=== PATIENT | male | born 1965 | race Caucasian/White ===

== ENCOUNTER 2020-03-28 18:28 | Emergency (ER) | payer MEDICARE ==
[~2020-03-28] VITALS: Ht 175.3 cm; Wt 95.3 kg
[2020-03-28] MEDS ORDERED: BOOSTRIX/ADACEL VACCINE (DIPHTH/PERTUSS/ACELL/TETANUS) 0.5ML SYR IM ONE (18:45)
[2020-03-28 18:51] LABS: HEMATOCRIT 44.4 % (42.0-52.0); HEMOGLOBIN 15.1 g/dl (13.5-17.5); MEAN CORPUSCULAR VOLUME 88.1 fl (80.0-96.0); PLATELET COUNT, AUTOMATED 182 10^3/uL (150-450); RED BLOOD COUNT 5.04 10^6/uL (4.30-6.10); WHITE BLOOD COUNT 10.4 10^3/uL (4.0-10.0)
[2020-03-28 19:03] LABS: INR 1.08; PROTHROMBIN TIME 13.7 SECONDS (11.8-14.0)
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
[2020-03-28 19:14] LABS: BLOOD UREA NITROGEN 16 MG/DL (7-18); CARBON DIOXIDE LEVEL 23 MEQ/L (21-32); CHLORIDE LEVEL 103 MEQ/L (98-107); GLOMERULAR FILTRATION RATE > 60.0 (>56); GLUCOSE, FASTING 356 MG/DL (70-100); SODIUM LEVEL 136 MEQ/L (136-145)
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
[2020-03-28 19:52] LABS: HEMOGLOBIN A1c 9.7 %
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
[2020-03-28] MEDS ORDERED: LISI10TA4 PO (22:21)
[2020-03-28] MEDS ORDERED: METF500T13 PO (22:21)
[2020-03-28 22:30] VITALS: BP 115/59
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
== END 2020-03-28 23:00 | disposition home or self-care (01) ==
LOC: M ED 18:28
DX: Q28.2 Arteriovenous malformation of cerebral vessels (principal); E11.9 Type 2 diabetes mellitus without complications; S20.211A Contusion of right front wall of thorax, initial encounter; I72.5 Aneurysm of other precerebral arteries; V91.33XA Hit or struck by falling object due to accident to other powered watercraft, initial encounter; Y92.9 Unspecified place or not applicable; Y93.9 Activity, unspecified; Y99.9 Unspecified external cause status; Z72.0 Tobacco use; Z91.89 Other specified personal risk factors, not elsewhere classified

== ENCOUNTER 2023-03-05 21:33 | Emergency (ER) | payer MEDICARE ==
[~2023-03-05] VITALS: Ht 177.8 cm; Wt 99.0 kg
[~2023-03-05 21:33] MED LIST: LISI10TA22 PO; METF500T13 PO
[2023-03-05] MEDS ORDERED: PROPOFOL 1,000 MG/100 ML VIAL As Ordered ONE (21:43)
[2023-03-05] MEDS ORDERED: ETOMIDATE INJ 20MG/10ML VIAL IV ONE (21:50)
[2023-03-05] MEDS ORDERED: SUCCINYLCHOLINE INJ 200MG/10ML VIAL IV ONE (21:50)
[2023-03-05] MEDS ORDERED: levETIRAcetam INJection 1,000 MG in D5W 100 ML IV ONE (21:55)
[2023-03-05] MEDS: propofoL 1,000 MG in IV 1 EA IV SCH ×2 (21:56→22:41)
[2023-03-05 22:09] LABS: ABG BASE EXCESS -5.9 (-2.0-2.0); ABG O2 SATURATION 99.2 % (95.0-99.0); ABG PARTIAL PRESSURE CO2 40.9 mmHg (35.0-45.0); ABG PARTIAL PRESSURE O2 213.4 mmHg (75.0-100.0); ABG STANDARD HCO3 19.8 MMOL/L. (22.0-26.0); ABG TOTAL CO2 21.3 MMOL/L (22.0-29.0); ABG pH (ARTERIAL) 7.308 UNITS (7.350-7.450)
[2023-03-05] MEDS ORDERED: HYDR-3713 PO (22:13)
[2023-03-05] MEDS ORDERED: ASPI32ECTA PO (22:13)
[2023-03-05] MEDS ORDERED: METF500T13 PO (22:13)
[2023-03-05 22:14] LABS: BASO % 0.5 % (0.0-1.0); EOS # 0.2 10^3/uL (0.0-0.5); EOS % 2.2 % (0.0-3.0); HEMATOCRIT 42.8 % (42.0-52.0); HEMOGLOBIN 14.6 g/dl (13.5-17.5); LYMPH # 2.3 10^3/uL (1.5-5.0); LYMPH % 31.2 % (24.0-44.0); MEAN CORPUSCULAR HEMOGLOBIN 30.5 pg (27.0-33.0); MEAN CORPUSCULAR HGB CONC 34.1 g/dl (32.0-36.5); MEAN CORPUSCULAR VOLUME 89.4 fl (80.0-96.0); MONO # 0.7 10^3/uL (0.0-0.8); MONO % 9.1 % (2.0-8.0); NEUTROPHILS # 4.2 10^3/uL (1.5-8.5); NEUTROPHILS % 56.5 % (36.0-66.0); PLATELET COUNT, AUTOMATED 212 10^3/uL (150-450); RED BLOOD COUNT 4.79 10^6/uL (4.30-6.10); WHITE BLOOD COUNT 7.4 10^3/uL (4.0-10.0)
[2023-03-05] MEDS ORDERED: HOME MED LIST COMPLETE! XX SCH (22:15)
[2023-03-05 22:16] VITALS: TEMP 98
[2023-03-05 22:19] VITALS: O2SAT 99
[2023-03-05] MEDS ORDERED: propofoL 200 MG/20 ML VIAL IV ONE (22:25)
[2023-03-05 22:32] LABS: INR 0.85; PROTHROMBIN TIME 11.8 SECONDS (12.5-14.5)
[2023-03-05 22:33] LABS: PARTIAL THROMBOPLASTIN TIME 25.8 SECONDS (24.8-34.2)
[2023-03-05 22:40] LABS: ALBUMIN 3.5 G/DL (3.2-5.2); ALKALINE PHOSPHATASE 68 U/L (46-116); ALT/SGPT 20 U/L (7.0-40); AST/SGOT 12 U/L (<34); BILIRUBIN,DIRECT 0.1 MG/DL (<0.4); BILIRUBIN,TOTAL 0.4 MG/DL (0.3-1.2); BLOOD UREA NITROGEN 16 MG/DL (9-23); CALCIUM LEVEL 9.1 MG/DL (8.5-10.1); CARBON DIOXIDE LEVEL 22 MMOL/L (20-31); CHLORIDE LEVEL 104 MMOL/L (98-107); CREATININE FOR GFR 0.72 MG/DL (0.70-1.30); GLOMERULAR FILTRATION RATE > 60.0 (>56); GLUCOSE, FASTING 208 MG/DL (60-100); MAGNESIUM LEVEL 1.8 MG/DL (1.8-2.4); PHOSPHORUS LEVEL 3.4 MG/DL (2.5-4.9); POTASSIUM SERUM 3.4 MMOL/L (3.5-5.1); SODIUM LEVEL 141 MMOL/L (136-145); TOTAL PROTEIN 6.4 G/DL (5.7-8.2)
[2023-03-05 23:19] LABS: AMPHETAMINES LEVEL URINE NEGATIVE (NEGATIVE); BARBITURATES URINE NEGATIVE (NEGATIVE); COCAINE METABOLITE URINE NEGATIVE (NEGATIVE); METHADONE URINE NEGATIVE (NEGATIVE)
[2023-03-05 23:20] LABS: CANNABINOIDS URINE NEGATIVE (NEGATIVE); PHENCYCLIDINE URINE NEGATIVE (NEGATIVE)
[2023-03-05 23:23] LABS: RSV AMPLIFICATION NEGATIVE (NEGATIVE)
[2023-03-05 23:29] LABS: BENZODIAZEPINES URINE POSITIVE (NEGATIVE); OPIATES URINE POSITIVE (NEGATIVE)
[2023-03-06] MEDS ORDERED: levETIRAcetam INJection 3,000 MG in D5W 100 ML IV ONE ×2
[2023-03-06 00:01] VITALS: BP 133/66; O2SAT 100
== END 2023-03-06 00:20 | disposition short-term general hospital (02) ==
LOC: EDBD 21:33 → M ED 21:33
DX: G40.901 Epilepsy, unspecified, not intractable, with status epilepticus (principal); Q28.2 Arteriovenous malformation of cerebral vessels; E11.9 Type 2 diabetes mellitus without complications; Z86.79 Personal history of other diseases of the circulatory system; Z79.82 Long term (current) use of aspirin; Z79.84 Long term (current) use of oral hypoglycemic drugs; Z88.3 Allergy status to other anti-infective agents
CPT/HCPCS: 31500; 36600; 51702; 70450; 71045; 80048; 80076; 80307; 81001; 82803; 83735; 84100; 85025; 85610; 85730; 86850; 86900; 86901; 87631; 93005; 93041; 94760; 96365; 96366; 96375; 99285; J0330; J1953

== ENCOUNTER 2023-05-20 23:56 | Inpatient (IN) | payer MEDICARE ==
[~2023-05-20] VITALS: Ht 175.3 cm; Wt 91.5 kg
[~2023-05-20 23:56] MED LIST changes: +ASPI32ECTA PO; +HYDR-3713 PO
[2023-05-21] VITALS (10 sets, daily range): BP systolic 115–131; BP diastolic 62–75; TEMP 97–98.7; O2SAT 94–99
[2023-05-21] MEDS ORDERED: ASPIRIN 81MG CHEW TABLET PO ONE (00:25)
[2023-05-21] MEDS ORDERED: methylPREDNISolone 125MG 2ML VIAL IV ONE (00:25)
[2023-05-21] MEDS ORDERED: AZIT-12 PO (00:26)
[2023-05-21] MEDS ORDERED: AMOX500T PO (00:26)
[2023-05-21] MEDS ORDERED: BENZONATATE 100MG CAPSULE PO ONE (00:30)
[2023-05-21] MEDS: IPRATROPIUM 0.5MG/ALBUTEROL 2.5MG INH SOL UD 3ML (DUONEB) NEB PRN ×2 (00:39→00:40)
[2023-05-21 00:41] LABS: BASO # 0.1 10^3/uL (0.0-0.2); BASO % 0.6 % (0.0-1.0); EOS # 0.2 10^3/uL (0.0-0.5); EOS % 2.5 % (0.0-3.0); HEMATOCRIT 45.2 % (42.0-52.0); HEMOGLOBIN 15.7 g/dl (13.5-17.5); LYMPH # 4.7 10^3/uL (1.5-5.0); LYMPH % 49.2 % (24.0-44.0); MEAN CORPUSCULAR HEMOGLOBIN 30.3 pg (27.0-33.0); MEAN CORPUSCULAR HGB CONC 34.7 g/dl (32.0-36.5); MEAN CORPUSCULAR VOLUME 87.3 fl (80.0-96.0); MONO % 10.9 % (2.0-8.0); NEUTROPHILS # 3.5 10^3/uL (1.5-8.5); NEUTROPHILS % 36.3 % (36.0-66.0); PLATELET COUNT, AUTOMATED 247 10^3/uL (150-450); RED BLOOD COUNT 5.18 10^6/uL (4.30-6.10); WHITE BLOOD COUNT 9.6 10^3/uL (4.0-10.0)
[2023-05-21 01:11] LABS: ALBUMIN 3.9 G/DL (3.2-5.2); ALKALINE PHOSPHATASE 73 U/L (46-116); ALT/SGPT 30 U/L (7.0-40); AST/SGOT 16 U/L (<34); BILIRUBIN,DIRECT 0.2 MG/DL (<0.4); BILIRUBIN,TOTAL 0.6 MG/DL (0.3-1.2); BLOOD UREA NITROGEN 19 MG/DL (9-23); CALCIUM LEVEL 9.2 MG/DL (8.5-10.1); CARBON DIOXIDE LEVEL 16 MMOL/L (20-31); CHLORIDE LEVEL 105 MMOL/L (98-107); CREATININE FOR GFR 0.69 MG/DL (0.70-1.30); GLOMERULAR FILTRATION RATE > 60.0 (>56); GLUCOSE, FASTING 246 MG/DL (60-100); MAGNESIUM LEVEL 1.9 MG/DL (1.8-2.4); POTASSIUM SERUM 3.6 MMOL/L (3.5-5.1); SODIUM LEVEL 139 MMOL/L (136-145); TOTAL PROTEIN 7.1 G/DL (5.7-8.2)
[2023-05-21 01:18] LABS: PROCALCITONIN 0.04 ng/ml
[2023-05-21 01:46] LABS: VENOUS BASE EXCESS -9.5 (-2.0-2.0); VENOUS HCO3 16.4 MMOL/L (23.0-27.0); VENOUS O2 SATURATION 91.8 % (60.0-80.0); VENOUS PARTIAL PRESSURE CO2 36.3 mmHg (38.0-50.0); VENOUS PARTIAL PRESSURE O2 69.2 mmHg (30.0-50.0); VENOUS PH 7.274 UNITS (7.330-7.430); VENOUS TOTAL CO2 17.6 MMOL/L (24.0-28.0)
[2023-05-21 01:51] LABS: ACETONE/KETONE 0.58 MMOL/L (0.02-0.27)
[2023-05-21] MEDS ORDERED: HumuLIN R (REGULAR) INSULIN (NovoLIN R) **100U/ML** PER UNIT IV ONE (02:30)
[2023-05-21] MEDS ORDERED: KCL 10MEQ/100ML SWI (KRUN) 10 MEQ in IV 1 EA IV ONE (02:35)
[2023-05-21] MEDS ORDERED: guaiFENesin DM LIQ 10ML UD PO ONE (03:25)
[2023-05-21 04:03] LABS: ABG BASE EXCESS -15.2 (-2.0-2.0); ABG HCO3 11.7 MMOL/L (22.0-26.0); ABG O2 SATURATION 98.6 % (95.0-99.0); ABG PARTIAL PRESSURE CO2 31.6 mmHg (35.0-45.0); ABG PARTIAL PRESSURE O2 142.5 mmHg (75.0-100.0); ABG STANDARD HCO3 13.3 MMOL/L. (22.0-26.0); ABG TOTAL CO2 12.7 MMOL/L (22.0-29.0)
[2023-05-21 04:05] LABS: ABG pH (ARTERIAL) 7.187 UNITS (7.350-7.450)
[2023-05-21] MEDS ORDERED: ONDANSETRON 4MG 2ML VIAL IV PRN (04:15)
[2023-05-21] MEDS ORDERED: LR 1,000 ML IV ONE ×2 (04:15)
[2023-05-21 04:22] LABS: HEMOGLOBIN A1c 7.8 % (4.0-6.0)
[2023-05-21 04:32] LABS: BLOOD UREA NITROGEN 19 MG/DL (9-23); CALCIUM LEVEL 8.6 MG/DL (8.5-10.1); CARBON DIOXIDE LEVEL 13 MMOL/L (20-31); CHLORIDE LEVEL 107 MMOL/L (98-107); CREATININE FOR GFR 0.75 MG/DL (0.70-1.30); GLOMERULAR FILTRATION RATE > 60.0 (>56); GLUCOSE, FASTING 278 MG/DL (60-100); POTASSIUM SERUM 3.2 MMOL/L (3.5-5.1); SODIUM LEVEL 141 MMOL/L (136-145)
[2023-05-21] MEDS: DOXYCYCLINE HYCLATE 100 MG in D5W MINI-BAG PLUS 100 ML IV SCH ×2 (04:47→16:48)
[2023-05-21 05:20] LABS: AMPHETAMINES LEVEL URINE NEGATIVE (NEGATIVE); BARBITURATES URINE NEGATIVE (NEGATIVE); BENZODIAZEPINES URINE NEGATIVE (NEGATIVE); CANNABINOIDS URINE NEGATIVE (NEGATIVE); COCAINE METABOLITE URINE NEGATIVE (NEGATIVE); PHENCYCLIDINE URINE NEGATIVE (NEGATIVE)
[2023-05-21 05:21] LABS: METHADONE URINE NEGATIVE (NEGATIVE); OPIATES URINE NEGATIVE (NEGATIVE)
[2023-05-21] MEDS: KCL 10MEQ/100ML SWI (KRUN) 10 MEQ in IV 1 EA IV SCH ×4 (05:54→10:39)
[2023-05-21] MEDS: cefTRIAXone SOD 1 GM in D5W MINI-BAG PLUS 50 ML IV SCH (05:54)
[2023-05-21] MEDS ORDERED: D5W/LR 1,000 ML IV SCH (06:00)
[2023-05-21 06:39] LABS: BLOOD UREA NITROGEN 18 MG/DL (9-23); CALCIUM LEVEL 8.3 MG/DL (8.5-10.1); CARBON DIOXIDE LEVEL 12 MMOL/L (20-31); CHLORIDE LEVEL 107 MMOL/L (98-107); CREATININE FOR GFR 0.73 MG/DL (0.70-1.30); GLOMERULAR FILTRATION RATE > 60.0 (>56); GLUCOSE, FASTING 272 MG/DL (60-100); PHOSPHORUS LEVEL 3.1 MG/DL (2.5-4.9); POTASSIUM SERUM 3.9 MMOL/L (3.5-5.1); SODIUM LEVEL 140 MMOL/L (136-145)
[2023-05-21] MEDS: INSULIN REGULAR IN 0.9 % NACL 100 UNIT in IV 1 EA IV SCH ×4 (06:44→19:56)
[2023-05-21] MEDS ORDERED: LR 1,000 ML IV SCH (06:50)
[2023-05-21 07:51] LABS: HEMATOCRIT 43.5 % (42.0-52.0); HEMOGLOBIN 14.3 g/dl (13.5-17.5); MEAN CORPUSCULAR HEMOGLOBIN 29.9 pg (27.0-33.0); MEAN CORPUSCULAR HGB CONC 32.9 g/dl (32.0-36.5); MEAN CORPUSCULAR VOLUME 90.8 fl (80.0-96.0); PLATELET COUNT, AUTOMATED 189 10^3/uL (150-450); RED BLOOD COUNT 4.79 10^6/uL (4.30-6.10)
[2023-05-21] MEDS: INSULIN IV RATE CHANGE DOCUMENTATION ML/HR XX SCH ×6 (07:55→20:57)
[2023-05-21] MEDS ORDERED: HOME MED LIST COMPLETE! XX SCH (08:00)
[2023-05-21 08:25] LABS: BLOOD UREA NITROGEN 15 MG/DL (9-23); CALCIUM LEVEL 7.8 MG/DL (8.5-10.1); CARBON DIOXIDE LEVEL < 10.0 MMOL/L (20-31); CHLORIDE LEVEL 107 MMOL/L (98-107); CREATININE FOR GFR 0.66 MG/DL (0.70-1.30); GLOMERULAR FILTRATION RATE > 60.0 (>56); GLUCOSE, FASTING 246 MG/DL (60-100); PHOSPHORUS LEVEL 2.3 MG/DL (2.5-4.9); POTASSIUM SERUM 4.5 MMOL/L (3.5-5.1); SODIUM LEVEL 138 MMOL/L (136-145)
[2023-05-21] MEDS: BENZONATATE 100MG CAPSULE PO SCH ×3 (09:32→20:10)
[2023-05-21] MEDS: PANTOPRAZOLE 40MG VIAL IV SCH ×2 (09:32→20:10)
[2023-05-21] MEDS: BUDESONIDE 0.5 MG/2 ML INHALATION SUSPENSION INH SCH ×2 (11:25→19:50)
[2023-05-21 12:04] LABS: VENOUS BASE EXCESS -9.2 (-2.0-2.0); VENOUS HCO3 14.7 MMOL/L (23.0-27.0); VENOUS O2 SATURATION 98.9 % (60.0-80.0); VENOUS PARTIAL PRESSURE CO2 27.1 mmHg (38.0-50.0); VENOUS PH 7.351 UNITS (7.330-7.430); VENOUS STANDARD HCO3 17.3 MMOL/L; VENOUS TOTAL CO2 15.5 MMOL/L (24.0-28.0)
[2023-05-21 12:37] LABS: BLOOD UREA NITROGEN 14 MG/DL (9-23); CALCIUM LEVEL 8.3 MG/DL (8.5-10.1); CARBON DIOXIDE LEVEL 16 MMOL/L (20-31); CHLORIDE LEVEL 111 MMOL/L (98-107); CREATININE FOR GFR 0.65 MG/DL (0.70-1.30); GLOMERULAR FILTRATION RATE > 60.0 (>56); GLUCOSE, FASTING 178 MG/DL (60-100); PHOSPHORUS LEVEL 1.3 MG/DL (2.5-4.9); POTASSIUM SERUM 4.4 MMOL/L (3.5-5.1); SODIUM LEVEL 140 MMOL/L (136-145)
[2023-05-21] MEDS: SUCRALFATE SUSP 1GM/10ML UD PO SCH ×2 (12:45→17:53)
[2023-05-21] MEDS: D5W/0.45% SODIUM CHLORIDE 1,000 ML IV SCH ×2 (13:19→20:10)
[2023-05-21] MEDS: HEPARIN SOD (PORCINE) 5000UNITS/ML 1ML VIAL/SYRINGE SC SCH ×2 (13:20→20:10)
[2023-05-21] MEDS ORDERED: MAG SULF 1GM/100ML (MAG RUN) 1 GM in IV 1 EA IV ONE (14:00)
[2023-05-21] MEDS ORDERED: POTASSIUM PHOSPHATE INJ 30 MMOL in D5W 500 ML IV ONE ×3 (15:00→21:00)
[2023-05-21 16:41] LABS: BLOOD UREA NITROGEN 12 MG/DL (9-23); CALCIUM LEVEL 8.6 MG/DL (8.5-10.1); CARBON DIOXIDE LEVEL 17 MMOL/L (20-31); CHLORIDE LEVEL 110 MMOL/L (98-107); CREATININE FOR GFR 0.65 MG/DL (0.70-1.30); GLOMERULAR FILTRATION RATE > 60.0 (>56); GLUCOSE, FASTING 214 MG/DL (60-100); PHOSPHORUS LEVEL 1.3 MG/DL (2.5-4.9); POTASSIUM SERUM 4.1 MMOL/L (3.5-5.1); SODIUM LEVEL 140 MMOL/L (136-145)
[2023-05-21 20:43] LABS: VENOUS BASE EXCESS -6.6 (-2.0-2.0); VENOUS HCO3 17.3 MMOL/L (23.0-27.0); VENOUS O2 SATURATION 99.1 % (60.0-80.0); VENOUS PARTIAL PRESSURE CO2 30.4 mmHg (38.0-50.0); VENOUS PARTIAL PRESSURE O2 144.7 mmHg (30.0-50.0); VENOUS PH 7.373 UNITS (7.330-7.430); VENOUS STANDARD HCO3 19.2 MMOL/L; VENOUS TOTAL CO2 18.2 MMOL/L (24.0-28.0)
[2023-05-21 21:32] LABS: BLOOD UREA NITROGEN 11 MG/DL (9-23); CALCIUM LEVEL 8.6 MG/DL (8.5-10.1); CARBON DIOXIDE LEVEL 18 MMOL/L (20-31); CHLORIDE LEVEL 112 MMOL/L (98-107); CREATININE FOR GFR 0.64 MG/DL (0.70-1.30); GLOMERULAR FILTRATION RATE > 60.0 (>56); GLUCOSE, FASTING 184 MG/DL (60-100); MAGNESIUM LEVEL 1.7 MG/DL (1.8-2.4); PHOSPHORUS LEVEL 2.5 MG/DL (2.5-4.9); POTASSIUM SERUM 4.1 MMOL/L (3.5-5.1); SODIUM LEVEL 140 MMOL/L (136-145)
[2023-05-21] MEDS ORDERED: DEXTROSE 50% 50ML SYRINGE IV PRN (22:05)
[2023-05-21] MEDS ORDERED: GLUCAGON INJ 1MG VIAL SC PRN (22:05)
[2023-05-21] MEDS ORDERED: GLUCOSE 4GM CHEW TABLET PO PRN (22:05)
[2023-05-21] MEDS ORDERED: LEVEMIR (INSULIN DETEMIR) 1 UNITS/0.01ML SC ONE (22:10)
[2023-05-22] VITALS (7 sets, daily range): BP systolic 107–155; BP diastolic 64–79; TEMP 97.3–98.7; O2SAT 94–99
[2023-05-22] MEDS: SUCRALFATE SUSP 1GM/10ML UD PO SCH ×5 (00:26→23:38)
[2023-05-22] MEDS: DOXYCYCLINE HYCLATE 100 MG in D5W MINI-BAG PLUS 100 ML IV SCH (03:51)
[2023-05-22] MEDS: guaiFENesin DM LIQ 10ML UD PO PRN (04:07)
[2023-05-22] MEDS: cefTRIAXone SOD 1 GM in D5W MINI-BAG PLUS 50 ML IV SCH (04:54)
[2023-05-22 05:01] LABS: BASO % 0.1 % (0.0-1.0); HEMOGLOBIN 13.3 g/dl (13.5-17.5); LYMPH # 1.4 10^3/uL (1.5-5.0); LYMPH % 8.5 % (24.0-44.0); MEAN CORPUSCULAR HEMOGLOBIN 30.2 pg (27.0-33.0); MEAN CORPUSCULAR HGB CONC 34.1 g/dl (32.0-36.5); MEAN CORPUSCULAR VOLUME 88.4 fl (80.0-96.0); MONO # 1.1 10^3/uL (0.0-0.8); MONO % 6.9 % (2.0-8.0); NEUTROPHILS # 13.6 10^3/uL (1.5-8.5); NEUTROPHILS % 84.1 % (36.0-66.0); PLATELET COUNT, AUTOMATED 188 10^3/uL (150-450); RED BLOOD COUNT 4.41 10^6/uL (4.30-6.10); WHITE BLOOD COUNT 16.2 10^3/uL (4.0-10.0)
[2023-05-22] MEDS: HEPARIN SOD (PORCINE) 5000UNITS/ML 1ML VIAL/SYRINGE SC SCH ×3 (05:08→21:08)
[2023-05-22] MEDS: ALBUTEROL SULFATE 2.5MG/0.5ML INH NEB SOLN NEB PRN (05:19)
[2023-05-22 05:45] LABS: ALBUMIN 3.3 G/DL (3.2-5.2); ALKALINE PHOSPHATASE 56 U/L (46-116); ALT/SGPT 27 U/L (7.0-40); AST/SGOT 13 U/L (<34); BILIRUBIN,TOTAL 0.6 MG/DL (0.3-1.2); BLOOD UREA NITROGEN 11 MG/DL (9-23); CALCIUM LEVEL 8.5 MG/DL (8.5-10.1); CARBON DIOXIDE LEVEL 20 MMOL/L (20-31); CHLORIDE LEVEL 110 MMOL/L (98-107); CREATININE FOR GFR 0.68 MG/DL (0.70-1.30); GLOMERULAR FILTRATION RATE > 60.0 (>56); GLUCOSE, FASTING 229 MG/DL (60-100); MAGNESIUM LEVEL 1.8 MG/DL (1.8-2.4); PHOSPHORUS LEVEL 3.2 MG/DL (2.5-4.9); POTASSIUM SERUM 4.2 MMOL/L (3.5-5.1); SODIUM LEVEL 138 MMOL/L (136-145); TOTAL PROTEIN 6.1 G/DL (5.7-8.2)
[2023-05-22] MEDS: INSULIN LISPRO (NovoLOG) PER UNIT SC SCH ×3 (07:30→17:10)
[2023-05-22] MEDS: BUDESONIDE 0.5 MG/2 ML INHALATION SUSPENSION INH SCH ×2 (07:40→19:11)
[2023-05-22] MEDS: PANTOPRAZOLE 40MG VIAL IV SCH ×2 (08:46→21:08)
[2023-05-22] MEDS ORDERED: MIDAZOLAM INJ 2MG/2ML VIAL As Ordered ONE (08:57)
[2023-05-22] MEDS ORDERED: LIDOCAINE 2% 100MG/5ML SDV (FOR ANES.) As Ordered ONE (08:57)
[2023-05-22] MEDS ORDERED: propofoL 200 MG/20 ML VIAL As Ordered ONE (08:57)
[2023-05-22] MEDS ORDERED: fentaNYL 100 MCG/2 ML INJECTION As Ordered ONE (08:57)
[2023-05-22] MEDS: BENZONATATE 100MG CAPSULE PO SCH ×3 (09:00→21:08)
[2023-05-22] MEDS ORDERED: THROMBIN 5,000 UNITS VIAL As Ordered ONE (09:05)
[2023-05-22] MEDS ORDERED: EPINEPHrine 1MG/10ML SYRINGE 1.5IN As Ordered ONE (09:06)
[2023-05-22] MEDS ORDERED: LIDOCAINE 2% MDV 20ML VIAL As Ordered ONE (09:06)
[2023-05-22] MEDS ORDERED: CETACAINE SPRAY 5GM As Ordered ONE (09:06)
[2023-05-22] MEDS ORDERED: ONDANSETRON 4MG 2ML VIAL As Ordered ONE (09:41)
[2023-05-22] MEDS ORDERED: METOCLOPRAMIDE INJ 10MG/2ML VIAL As Ordered ONE (09:41)
[2023-05-22] MEDS ORDERED: ONDANSETRON 4MG 2ML VIAL IV PRN (10:00)
[2023-05-22] MEDS ORDERED: INSULIN LISPRO (NovoLOG) PER UNIT SC PRN (10:00)
[2023-05-22] MEDS ORDERED: LR 1,000 ML IV SCH (10:00)
[2023-05-22] MEDS ORDERED: oxyCODONE 5MG TAB PO PRN (10:00)
[2023-05-22] MEDS ORDERED: CEPACOL LOZENGE PO PRN (11:20)
[2023-05-22] MEDS: DOXYCYCLINE HYCLATE 100MG TABLET PO SCH ×2 (12:02→21:08)
[2023-05-22] MEDS ORDERED: LIDOCAINE 4% INJ 5ML AMP INH ONE (13:00)
[2023-05-22] MEDS ORDERED: LEVEMIR (INSULIN DETEMIR) 1 UNITS/0.01ML SC SCH (21:00)
[2023-05-22] MEDS ORDERED: INSULIN LISPRO (NovoLOG) PER UNIT SC SCH (21:00)
[2023-05-23] VITALS: BP 130/72; TEMP 97.8; O2SAT 95
[2023-05-23 04:00] VITALS: BP 121/93; TEMP 97.9; O2SAT 98
[2023-05-23] MEDS: cefTRIAXone SOD 1 GM in D5W MINI-BAG PLUS 50 ML IV SCH (04:05)
[2023-05-23] MEDS: ALBUTEROL SULFATE 2.5MG/0.5ML INH NEB SOLN NEB PRN ×2 (04:06→07:08)
[2023-05-23 04:58] LABS: BASO % 0.2 % (0.0-1.0); EOS % 0.2 % (0.0-3.0); HEMATOCRIT 39.2 % (42.0-52.0); HEMOGLOBIN 13.4 g/dl (13.5-17.5); LYMPH % 32.8 % (24.0-44.0); MEAN CORPUSCULAR HEMOGLOBIN 30.2 pg (27.0-33.0); MEAN CORPUSCULAR HGB CONC 34.2 g/dl (32.0-36.5); MEAN CORPUSCULAR VOLUME 88.3 fl (80.0-96.0); MONO # 0.8 10^3/uL (0.0-0.8); MONO % 8.6 % (2.0-8.0); NEUTROPHILS # 5.2 10^3/uL (1.5-8.5); NEUTROPHILS % 57.8 % (36.0-66.0); PLATELET COUNT, AUTOMATED 167 10^3/uL (150-450); RED BLOOD COUNT 4.44 10^6/uL (4.30-6.10)
[2023-05-23 05:12] LABS: ALBUMIN 3.2 G/DL (3.2-5.2); ALKALINE PHOSPHATASE 56 U/L (46-116); ALT/SGPT 23 U/L (7.0-40); AST/SGOT 10 U/L (<34); BILIRUBIN,TOTAL 0.5 MG/DL (0.3-1.2); BLOOD UREA NITROGEN 20 MG/DL (9-23); CALCIUM LEVEL 8.1 MG/DL (8.5-10.1); CARBON DIOXIDE LEVEL 24 MMOL/L (20-31); CHLORIDE LEVEL 109 MMOL/L (98-107); CREATININE FOR GFR 0.81 MG/DL (0.70-1.30); GLOMERULAR FILTRATION RATE > 60.0 (>56); GLUCOSE, FASTING 149 MG/DL (60-100); MAGNESIUM LEVEL 1.8 MG/DL (1.8-2.4); POTASSIUM SERUM 3.8 MMOL/L (3.5-5.1); SODIUM LEVEL 139 MMOL/L (136-145); TOTAL PROTEIN 6.1 G/DL (5.7-8.2)
[2023-05-23] MEDS: SUCRALFATE SUSP 1GM/10ML UD PO SCH (05:25)
[2023-05-23] MEDS: HEPARIN SOD (PORCINE) 5000UNITS/ML 1ML VIAL/SYRINGE SC SCH (05:25)
[2023-05-23] MEDS: guaiFENesin DM LIQ 10ML UD PO PRN (06:52)
[2023-05-23] MEDS: BUDESONIDE 0.5 MG/2 ML INHALATION SUSPENSION INH SCH (07:08)
[2023-05-23 08:00] VITALS: BP 147/79; TEMP 98.1; O2SAT 96
[2023-05-23] MEDS: BENZONATATE 100MG CAPSULE PO SCH (08:53)
[2023-05-23] MEDS: DOXYCYCLINE HYCLATE 100MG TABLET PO SCH (08:53)
[2023-05-23] MEDS: PANTOPRAZOLE 40MG VIAL IV SCH (08:53)
[2023-05-23] MEDS: INSULIN LISPRO (NovoLOG) PER UNIT SC SCH (08:56)
[2023-05-23] MEDS ORDERED: ALB2.5NEB NEB (09:42)
[2023-05-23] MEDS ORDERED: BUDE0.5S6 INH (09:42)
== END 2023-05-23 12:22 | disposition home or self-care (01) | DRG 637 ==
LOC: M ED 23:56 → M ED INP 05-21 04:14 → M ICU 05-21 05:32
PROVIDERS: ADMIT Internal Medicine Critical Care Medicine; ATTEND Student in an Organized Health Care Education/Training Program
PROC: 0BJ08ZZ Inspection of Tracheobronchial Tree, Via Natural or Artificial Opening Endoscopic (ICD-10-PCS; principal; 2023-05-22 08:31)
DX: E11.10 Type 2 diabetes mellitus with ketoacidosis without coma (principal); J18.9 Pneumonia, unspecified organism; J96.01 Acute respiratory failure with hypoxia; J38.3 Other diseases of vocal cords; Z79.899 Other long term (current) drug therapy; Z91.041 Radiographic dye allergy status; Z88.8 Allergy status to other drugs, medicaments and biological substances; K21.9 Gastro-esophageal reflux disease without esophagitis

== ENCOUNTER 2024-04-12 20:31 | Emergency (ER) | payer MEDICARE ==
[~2024-04-12] VITALS: Ht 167.6 cm; Wt 93.0 kg
[~2024-04-12 20:31] MED LIST changes: +ALB2.5NEB NEB; +AMOX500T PO; +AZIT-12 PO; +BUDE0.5S6 INH
[2024-04-12 20:34] VITALS: TEMP 98
[2024-04-12] MEDS: NS 1,000 ML IV ONE (20:47)
[2024-04-12] MEDS: levETIRAcetam INJection 1,000 MG in D5W 100 ML IV ONE (20:47)
[2024-04-12 20:57] LABS: BASO % 0.5 % (0.0-1.0); EOS # 0.2 10^3/uL (0.0-0.5); EOS % 2.3 % (0.0-3.0); HEMATOCRIT 45.2 % (42.0-52.0); HEMOGLOBIN 15.7 g/dl (13.5-17.5); LYMPH % 38.7 % (24.0-44.0); MEAN CORPUSCULAR HEMOGLOBIN 30.7 pg (27.0-33.0); MEAN CORPUSCULAR HGB CONC 34.7 g/dl (32.0-36.5); MEAN CORPUSCULAR VOLUME 88.5 fl (80.0-96.0); MONO # 0.8 10^3/uL (0.0-0.8); MONO % 10.7 % (2.0-8.0); NEUTROPHILS # 3.7 10^3/uL (1.5-8.5); NEUTROPHILS % 47.3 % (36.0-66.0); PLATELET COUNT, AUTOMATED 203 10^3/uL (150-450); RED BLOOD COUNT 5.11 10^6/uL (4.30-6.10); WHITE BLOOD COUNT 7.8 10^3/uL (4.0-10.0)
[2024-04-12 21:13] LABS: AMPHETAMINES LEVEL URINE NEGATIVE (NEGATIVE); BARBITURATES URINE NEGATIVE (NEGATIVE); BENZODIAZEPINES URINE NEGATIVE (NEGATIVE); CANNABINOIDS URINE NEGATIVE (NEGATIVE); COCAINE METABOLITE URINE NEGATIVE (NEGATIVE); METHADONE URINE NEGATIVE (NEGATIVE); OPIATES URINE NEGATIVE (NEGATIVE); PHENCYCLIDINE URINE NEGATIVE (NEGATIVE)
[2024-04-12 21:16] LABS: CK-MB VALUE MASS < 1.0 NG/ML (<3.6)
[2024-04-12 21:17] LABS: CPK CREATINE PHOSPHOKINASE 81 U/L (46-171); MB/CK RELATIVE INDEX 1.23 (< OR =4)
[2024-04-12 21:18] LABS: ALBUMIN 3.8 G/DL (3.2-5.2); ALKALINE PHOSPHATASE 72 U/L (46-116); ALT/SGPT 26 U/L (7.0-40); AST/SGOT 19 U/L (<34); BILIRUBIN,DIRECT 0.1 MG/DL (<0.4); BILIRUBIN,TOTAL 0.6 MG/DL (0.3-1.2); BLOOD UREA NITROGEN 18 MG/DL (9-23); CALCIUM LEVEL 9.1 MG/DL (8.3-10.6); CARBON DIOXIDE LEVEL 20 MMOL/L (20-31); CHLORIDE LEVEL 107 MMOL/L (98-107); CREATININE FOR GFR 0.72 MG/DL (0.70-1.30); GLOMERULAR FILTRATION RATE > 60.0 (>49); GLUCOSE, FASTING 216 MG/DL (74-106); POTASSIUM SERUM 3.8 MMOL/L (3.5-5.1); SALICYLATE LEVEL < 3.0 MG/DL (<30); SODIUM LEVEL 139 MMOL/L (136-145)
[2024-04-12 21:19] LABS: THYROID STIMULATING HORMONE 1.466 uIU/ML (0.55-4.78)
[2024-04-12 21:39] LABS: ETHYL ALCOHOL (ETHANOL) 0.145 % (0.000-0.010)
[2024-04-12 23:00] VITALS: BP 99/57; O2SAT 97
[2024-04-12] MEDS ORDERED: VENTAER INH (23:21)
[2024-04-12] MEDS: ACETAMINOPHEN TAB 650MG DOSE (2X325MG) PO ONE (23:37)
== END 2024-04-12 23:57 | disposition home or self-care (01) ==
LOC: M ED 20:31
DX: R56.9 Unspecified convulsions (principal); F10.129 Alcohol abuse with intoxication, unspecified; E11.9 Type 2 diabetes mellitus without complications; I10 Essential (primary) hypertension; Z87.820 Personal history of traumatic brain injury; I67.1 Cerebral aneurysm, nonruptured; Q28.2 Arteriovenous malformation of cerebral vessels; Q04.8 Other specified congenital malformations of brain; Z79.84 Long term (current) use of oral hypoglycemic drugs; Z79.899 Other long term (current) drug therapy; Z91.041 Radiographic dye allergy status
CPT/HCPCS: 70450; 71045; 80048; 80076; 80143; 80307; 81001; 82077; 82140; 82550; 82553; 83605; 84443; 84484; 85025; 93005; 93041; 94760; 96365; 96366; 99285; J1953

== ENCOUNTER 2024-06-22 20:20 | Inpatient (IN) | payer MEDICARE ==
[~2024-06-22] VITALS: Ht 175.3 cm; Wt 94.9 kg
[~2024-06-22 20:20] MED LIST changes: +VENTAER INH
[2024-06-22] MEDS ORDERED: TRAD5TAB PO (20:27)
[2024-06-22] MEDS ORDERED: BUDE10.7 INH (20:27)
[2024-06-22 20:45] LABS: BASO # 0.1 10^3/uL (0.0-0.2); BASO % 0.7 % (0.0-1.0); EOS # 0.3 10^3/uL (0.0-0.5); EOS % 2.8 % (0.0-3.0); HEMATOCRIT 45.4 % (42.0-52.0); HEMOGLOBIN 15.5 g/dl (13.5-17.5); LYMPH # 3.8 10^3/uL (1.5-5.0); LYMPH % 38.6 % (24.0-44.0); MEAN CORPUSCULAR HEMOGLOBIN 30.3 pg (27.0-33.0); MEAN CORPUSCULAR HGB CONC 34.1 g/dl (32.0-36.5); MEAN CORPUSCULAR VOLUME 88.7 fl (80.0-96.0); MONO # 0.8 10^3/uL (0.0-0.8); MONO % 8.4 % (2.0-8.0); NEUTROPHILS # 4.8 10^3/uL (1.5-8.5); NEUTROPHILS % 49.2 % (36.0-66.0); PLATELET COUNT, AUTOMATED 214 10^3/uL (150-450); RED BLOOD COUNT 5.12 10^6/uL (4.30-6.10); WHITE BLOOD COUNT 9.7 10^3/uL (4.0-10.0)
[2024-06-22 21:07] LABS: OSMOLALITY SERUM 363 MOSM/KG (280-301)
[2024-06-22 21:19] LABS: CK-MB VALUE MASS < 1.0 NG/ML (<3.6); ETHYL ALCOHOL (ETHANOL) 0.238 % (0.000-0.010)
[2024-06-22 21:20] LABS: VENOUS BASE EXCESS -5.8 (-2.0-2.0); VENOUS HCO3 20.4 MMOL/L (23.0-27.0); VENOUS O2 SATURATION 93.3 % (60.0-80.0); VENOUS PARTIAL PRESSURE CO2 42.8 mmHg (38.0-50.0); VENOUS PARTIAL PRESSURE O2 76.4 mmHg (30.0-50.0); VENOUS PH 7.297 UNITS (7.330-7.430); VENOUS STANDARD HCO3 19.7 MMOL/L; VENOUS TOTAL CO2 21.8 MMOL/L (24.0-28.0)
[2024-06-22 21:21] LABS: ALBUMIN 3.8 G/DL (3.2-5.2); ALKALINE PHOSPHATASE 71 U/L (46-116); ALT/SGPT 30 U/L (7.0-40); AST/SGOT 21 U/L (<34); BILIRUBIN,DIRECT 0.1 MG/DL (<0.4); BILIRUBIN,TOTAL 0.5 MG/DL (0.3-1.2); BLOOD UREA NITROGEN 18 MG/DL (9-23); CALCIUM LEVEL 9.2 MG/DL (8.3-10.6); CARBON DIOXIDE LEVEL 22 MMOL/L (20-31); CHLORIDE LEVEL 107 MMOL/L (98-107); CPK CREATINE PHOSPHOKINASE 52 U/L (46-171); CREATININE FOR GFR 0.74 MG/DL (0.70-1.30); GLOMERULAR FILTRATION RATE > 60.0 (>49); GLUCOSE, FASTING 289 MG/DL (74-106); MB/CK RELATIVE INDEX 1.92 (< OR =4); SALICYLATE LEVEL < 3.0 MG/DL (<30); SODIUM LEVEL 139 MMOL/L (136-145); TOTAL PROTEIN 7.2 G/DL (5.7-8.2)
[2024-06-22 21:23] LABS: THYROID STIMULATING HORMONE 1.372 uIU/ML (0.55-4.78)
[2024-06-22] MEDS: NS 1,000 ML IV ONE (21:55)
[2024-06-22 22:50] LABS: VENOUS BASE EXCESS -4.1 (-2.0-2.0); VENOUS HCO3 22.2 MMOL/L (23.0-27.0); VENOUS PARTIAL PRESSURE CO2 44.7 mmHg (38.0-50.0); VENOUS PARTIAL PRESSURE O2 61.6 mmHg (30.0-50.0); VENOUS PH 7.314 UNITS (7.330-7.430); VENOUS TOTAL CO2 23.6 MMOL/L (24.0-28.0)
[2024-06-22 23:19] LABS: CK-MB VALUE MASS < 1.0 NG/ML (<3.6)
[2024-06-22 23:21] LABS: CPK CREATINE PHOSPHOKINASE 41 U/L (46-171); MB/CK RELATIVE INDEX 2.43 (< OR =4)
[2024-06-23] VITALS (8 sets, daily range): BP systolic 92–125; BP diastolic 51–72; TEMP 97.7–98.2; O2SAT 92–98
[2024-06-23 01:23] LABS: AMPHETAMINES LEVEL URINE NEGATIVE (NEGATIVE); BARBITURATES URINE NEGATIVE (NEGATIVE); COCAINE METABOLITE URINE NEGATIVE (NEGATIVE); METHADONE URINE NEGATIVE (NEGATIVE); OPIATES URINE NEGATIVE (NEGATIVE)
[2024-06-23 01:24] LABS: CANNABINOIDS URINE NEGATIVE (NEGATIVE); PHENCYCLIDINE URINE NEGATIVE (NEGATIVE)
[2024-06-23 01:25] LABS: BENZODIAZEPINES URINE POSITIVE (NEGATIVE)
[2024-06-23 01:31] LABS: PROCALCITONIN 0.06 ng/ml
[2024-06-23] MEDS: NS 1,000 ML IV ONE (02:15)
[2024-06-23] MEDS ORDERED: LR 1,000 ML IV ONE (02:45)
[2024-06-23 03:44] LABS: ABG BASE EXCESS -8.4 (-2.0-2.0); ABG HCO3 16.6 MMOL/L (22.0-26.0); ABG O2 SATURATION 97.3 % (95.0-99.0); ABG PARTIAL PRESSURE CO2 33.1 mmHg (35.0-45.0); ABG PARTIAL PRESSURE O2 105.1 mmHg (75.0-100.0); ABG STANDARD HCO3 17.8 MMOL/L. (22.0-26.0); ABG TOTAL CO2 17.6 MMOL/L (23.0-31.0); ABG pH (ARTERIAL) 7.318 UNITS (7.350-7.450)
[2024-06-23] MEDS ORDERED: DEXTROSE 50% 50ML SYRINGE IV PRN (03:50)
[2024-06-23] MEDS ORDERED: GLUCAGON INJ 1MG VIAL SC PRN (03:50)
[2024-06-23] MEDS ORDERED: MOM 30ML SUSPENSION UDC PO PRN (03:50)
[2024-06-23] MEDS ORDERED: GLUCOSE 4 GM CHEW PO PRN (03:50)
[2024-06-23] MEDS ORDERED: LORazepam 2 MG TAB PO PRN (04:25)
[2024-06-23] MEDS ORDERED: ATOR1TAB21 PO (04:52)
[2024-06-23] MEDS ORDERED: ALBU8.5H INH (04:52)
[2024-06-23] MEDS ORDERED: METF-838 PO (04:52)
[2024-06-23] MEDS ORDERED: HOME MED LIST COMPLETE! XX SCH (04:55)
[2024-06-23] MEDS: LR 1,000 ML IV ONE ×2 (05:05→06:35)
[2024-06-23] MEDS ORDERED: SODIUM BICARBONATE 150 MEQ in D5W 1,000 ML IV SCH (06:00)
[2024-06-23] MEDS: THIAMINE 100 MG TAB PO SCH (06:01)
[2024-06-23 07:32] LABS: HEMATOCRIT 42.4 % (42.0-52.0); HEMOGLOBIN 14.2 g/dl (13.5-17.5); MEAN CORPUSCULAR HEMOGLOBIN 30.3 pg (27.0-33.0); MEAN CORPUSCULAR HGB CONC 33.5 g/dl (32.0-36.5); MEAN CORPUSCULAR VOLUME 90.6 fl (80.0-96.0); PLATELET COUNT, AUTOMATED 177 10^3/uL (150-450); RED BLOOD COUNT 4.68 10^6/uL (4.30-6.10); WHITE BLOOD COUNT 8.2 10^3/uL (4.0-10.0)
[2024-06-23 08:12] LABS: ALBUMIN 3.2 G/DL (3.2-5.2); ALKALINE PHOSPHATASE 59 U/L (46-116); ALT/SGPT 27 U/L (7.0-40); AST/SGOT 26 U/L (<34); BILIRUBIN,TOTAL 0.4 MG/DL (0.3-1.2); BLOOD UREA NITROGEN 12 MG/DL (9-23); CALCIUM LEVEL 8.1 MG/DL (8.3-10.6); CARBON DIOXIDE LEVEL 20 MMOL/L (20-31); CHLORIDE LEVEL 107 MMOL/L (98-107); GLOMERULAR FILTRATION RATE > 60.0 (>49); GLUCOSE, FASTING 193 MG/DL (74-106); POTASSIUM SERUM 4.5 MMOL/L (3.5-5.1); SODIUM LEVEL 139 MMOL/L (136-145); TOTAL PROTEIN 6.3 G/DL (5.7-8.2)
[2024-06-23] MEDS ORDERED: levETIRAcetam INJection 1,000 MG in D5W 100 ML IV ONE (08:25)
[2024-06-23] MEDS ORDERED: LORazepam 2 MG/ML 1ML VIAL As Ordered ONE (08:25)
[2024-06-23] MEDS: LORazepam 2 MG/ML 1ML VIAL IV STA (08:27)
[2024-06-23] MEDS ORDERED: ALBUTEROL SULFATE 2.5MG/0.5ML INH NEB SOLN INH PRN (08:40)
[2024-06-23] MEDS: levETIRAcetam INJection 4,500 MG in D5W 100 ML IV ONE (09:08)
[2024-06-23] MEDS: INSULIN LISPRO (NovoLOG) PER UNIT SC SCH ×2 (09:33→21:00)
[2024-06-23] MEDS: MULTIVITAMINS/MINERALS THERAP 1 TAB PO SCH (10:13)
[2024-06-23] MEDS: FOLIC ACID 1MG TAB PO SCH (10:14)
[2024-06-23] MEDS: ENOXAPARIN 40MG/0.4ML SYRINGE (J1650 PER 10MG) SC SCH (10:15)
[2024-06-23] MEDS: BUDESONIDE 180MCG INHALER (PULMICORT FLEXHALER) INH SCH (11:12)
[2024-06-23] MEDS: ALBUTEROL SULFATE 2.5MG/0.5ML INH NEB SOLN INH SCH (11:38)
[2024-06-23] MEDS: ACETAMINOPHEN 325 MG TAB PO PRN (15:23)
[2024-06-23] MEDS: levETIRAcetam INJection 750 MG in D5W 100 ML IV SCH (23:06)
[2024-06-24] VITALS: BP 120/70; TEMP 97; O2SAT 95
[2024-06-24 04:00] VITALS: BP 104/61; TEMP 97.9; O2SAT 96
[2024-06-24 06:00] VITALS: BP 95/65
[2024-06-24 06:40] LABS: BASO % 0.6 % (0.0-1.0); EOS # 0.2 10^3/uL (0.0-0.5); EOS % 2.3 % (0.0-3.0); HEMATOCRIT 40.9 % (42.0-52.0); HEMOGLOBIN 13.9 g/dl (13.5-17.5); LYMPH # 1.5 10^3/uL (1.5-5.0); MEAN CORPUSCULAR HEMOGLOBIN 30.3 pg (27.0-33.0); MEAN CORPUSCULAR VOLUME 89.1 fl (80.0-96.0); MONO # 0.8 10^3/uL (0.0-0.8); NEUTROPHILS # 3.9 10^3/uL (1.5-8.5); NEUTROPHILS % 60.8 % (36.0-66.0); PLATELET COUNT, AUTOMATED 162 10^3/uL (150-450); RED BLOOD COUNT 4.59 10^6/uL (4.30-6.10); WHITE BLOOD COUNT 6.4 10^3/uL (4.0-10.0)
[2024-06-24 07:13] LABS: BLOOD UREA NITROGEN 14 MG/DL (9-23); CALCIUM LEVEL 8.7 MG/DL (8.3-10.6); CARBON DIOXIDE LEVEL 26 MMOL/L (20-31); CHLORIDE LEVEL 105 MMOL/L (98-107); CREATININE FOR GFR 0.73 MG/DL (0.70-1.30); GLOMERULAR FILTRATION RATE > 60.0 (>49); GLUCOSE, FASTING 191 MG/DL (74-106); POTASSIUM SERUM 3.5 MMOL/L (3.5-5.1); SODIUM LEVEL 138 MMOL/L (136-145)
[2024-06-24 08:00] VITALS: BP 153/84; TEMP 97.9; O2SAT 95
[2024-06-24] MEDS: ATORVASTATIN 20 MG TAB PO SCH (09:29)
[2024-06-24 12:00] VITALS: BP 115/73; TEMP 97.7; O2SAT 95
[2024-06-24] MEDS ORDERED: GLIP2.5T6 PO (12:01)
[2024-06-24] MEDS ORDERED: KEPP1TAB PO (12:01)
== END 2024-06-24 14:58 | disposition home or self-care (01) | DRG 101 ==
LOC: M ED 20:20 → M ED INP 06-23 03:47 → M MSPAV 06-23 04:36
PROVIDERS: ADMIT Student in an Organized Health Care Education/Training Program; ATTEND Internal Medicine
PROC: B246ZZZ Ultrasonography of Right and Left Heart (ICD-10-PCS; principal; 2024-06-24)
DX: R56.9 Unspecified convulsions (principal); E87.20 Acidosis, unspecified; F10.921 Alcohol use, unspecified with intoxication delirium; E11.9 Type 2 diabetes mellitus without complications; E78.5 Hyperlipidemia, unspecified; F41.9 Anxiety disorder, unspecified; F32.A Depression, unspecified; Z79.84 Long term (current) use of oral hypoglycemic drugs; Z79.899 Other long term (current) drug therapy; Z91.048 Other nonmedicinal substance allergy status; Z91.041 Radiographic dye allergy status; R06.00 Dyspnea, unspecified